=== PATIENT | female | born 1940 | race Caucasian/White ===

== ENCOUNTER 2021-06-02 13:33 | Outpatient (CLI) | payer MEDICARE, SELFPAY ==
--- NOTE | ~2021-06-02 | DEXA_ITS ---
Bone Density Report Name: THOM CHIN Age: 80 Sex: Female Ethnicity: White Date of : 1940 Indication: osteopenia; height loss; prior fracture; Referring Provider: BLADIMIR EDDY Study: Bone densitometry was performed. Exam Date: June 02, 2021 Accession number: [id number] Bone Density: Region BMD T-score Z-score Classification AP Spine (L1-L4) 1.013 -0.3 2.3 Normal Femoral Neck (Left) 0.676 -1.6 0.7 Osteopenia Total Hip (Left) 0.830 -0.9 1.1 Normal Total Hip Bilateral Avg 0.818 -1.0 1.0 Osteopenia Femoral Neck (Right) 0.650 -1.8 0.4 Osteopenia Total Hip (Right) 0.806 -1.1 0.9 Osteopenia World Health Organization criteria for BMD impression classify patients as: Normal (T-score at or above -1.0), Osteopenia (T-score between -1.0 and -2.5), or Osteoporosis (T-score at or below -2.5). 10-year Fracture Risk(1): Major Osteoporotic Fracture 20% Hip Fracture 4.7% Reported Risk Factors: [place] (), Neck BMD=0.650, BMI=26.2, previous fracture (1) FRAX(R) Version 3.08. Fracture probability calculated for an untreated patient. Fracture probability may be lower if the patient has received treatment. Previous Exams: Region Exam Age BMD T-score BMD Change BMD Change Date g/cm2 vs Baseline vs Previous AP Spine(L1-L4) 06/02/2021 80 1.013 -0.3 0.019(1.9%)# 0.027(2.8%)# 12/30/2018 78 0.986 -0.6 -0.008(-0.8%)# 0.001(0.1%) 04/25/2016 75 0.985 -0.6 -0.009(-0.9%)# 0.002(0.2%)# 12/20/2012 72 0.982 -0.6 -0.012(-1.2%)# -0.042(-4.1%)# 05/01/2009 68 1.024 -0.2 0.030(3.1%)* 0.030(3.1%)* 04/20/2007 66 0.994 -0.5 Total Hip(Left) 06/02/2021 80 0.830 -0.9 0.063(8.2%)# 0.047(6.1%)# 12/30/2018 78 0.783 -1.3 0.015(2.0%)# 0.041(5.5%)* 04/25/2016 75 0.742 -1.6 -0.025(-3.3%)# -0.045(-5.8%)# 12/20/2012 72 0.788 -1.3 0.020(2.6%)# 0.014(1.8%)# 05/01/2009 68 0.774 -1.4 0.006(0.8%) 0.006(0.8%) 04/20/2007 66 0.768 -1.4 Total Hip(Right) 06/02/2021 80 0.806 -1.1 0.065(8.8%)# 0.091(12.7%)# 12/30/2018 78 0.715 -1.9 -0.026(-3.5%)# -0.079(-9.9%)* 04/25/2016 75 0.794 -1.2 0.053(7.1%)# 0.008(1.0%)# 12/20/2012 72 0.787 -1.3 0.045(6.1%)# 0.048(6.5%)# 05/01/2009 68 0.739 -1.7 -0.003(-0.4%) -0.003(-0.4%) 04/20/2007 66 0.741 -1.6 *Denotes significance at 95% confidence level, LSC for AP Spine = 0.022 g/cm2, LSC for Total Hip = 0.027 g/cm2 Clinical Information Provided by Patient:
--- NOTE | ~2021-06-02 | MM_ITS ---
EXAMINATION: MM screening frandy BI w avel HISTORY: Screening mammogram TECHNIQUE: Craniocaudal and mediolateral oblique 3-D tomosynthesis images were obtained and synthetic 2-D images were generated. CAD analysis was submitted and interpreted. COMPARISON: 12/30/2018, 04/25/2016 bilateral screening mammogram examinations BREAST PARENCHYMAL COMPOSITION: There are scattered areas of fibroglandular density. FINDINGS: Stable mild fibroglandular asymmetry. Circumscribed low-density 2.4 mm circular mass with halo sign is noted in the mid outer left breast ( craniocaudal Tomosynthesis image 22/68), with benign mammographic features, likely a small cyst There is no evidence of suspicious mass, calcification, or architectural distortion to suggest malignancy in either breast. There has been no suspicious interval change. IMPRESSION: 1. No mammographic evidence of malignancy. 2. Recommend routine screening mammography in one year. BI-RADS Category 2: Benign finding(s). Reviewed, dictated and finalized at location A. AR[facility] NUTRITIONIST
== END 2021-06-02 13:34 | disposition home or self-care (01) ==
LOC: ANHIMG 13:37
PROVIDERS: PCP Family Medicine; Visit Provider Family Medicine
DX: Z12.31 Encounter for screening mammogram for malignant neoplasm of breast (principal); Z78.0 Asymptomatic menopausal state; M85.852 Other specified disorders of bone density and structure, left thigh; M85.851 Other specified disorders of bone density and structure, right thigh
CPT/HCPCS: 77063; 77067; 77080

== ENCOUNTER 2022-01-06 11:08 | Outpatient (CLI) | payer MEDICARE, SELFPAY ==
--- NOTE | ~2022-01-06 | US_ITS ---
US venous doppler LE RT DATE: 01/06/2022 11:38 INDICATION: Deep venous thrombosis of right lower extremity TECHNIQUE: Real-time and color flow imaging and Doppler analysis of the veins of the right lower extr emity COMPARISON: None FINDINGS: The greater saphenous vein is patent. Thrombus is identified within the right, and femoral, femoral, popliteal, posterior tibial and peroneal veins, with incomplete compression of these vessel s IMPRESSION: Deep venous thrombosis of right common femoral, femoral, popliteal, posterior tibial and peroneal veins Dr. Ogden telephoned the report on 01/06/2022 at 12:[address] Brady Castro Reviewed, dictated and finalized at Location A. Reviewed, dictated and finalized at location B. IMPRESSION: Deep venous thrombosis of right common femoral, femoral, popliteal, posterior tibial and peroneal veins Dr. Ogden telephoned the report on 01/06/2022 at 12:[address] Brady martínez
== END 2022-01-06 11:09 | disposition home or self-care (01) ==
PROVIDERS: PCP Family Medicine; Visit Provider Family Medicine
DX: M79.89 Other specified soft tissue disorders (principal); I82.411 Acute embolism and thrombosis of right femoral vein; I82.431 Acute embolism and thrombosis of right popliteal vein; I82.441 Acute embolism and thrombosis of right tibial vein; I82.451 Acute embolism and thrombosis of right peroneal vein
CPT/HCPCS: 93971

== ENCOUNTER → 2022-04-19 13:45 | Outpatient (CLI) | payer MEDICARE, SELFPAY ==
--- NOTE | ~2022-04-19 | XR_ITS ---
XR wrist RT min 3V DATE: 04/19/2022 13:59 INDICATION: Fall. Wrist pain. Swelling and bruising of hand. TECHNIQUE: 4 views of right wrist COMPARISON: None FINDINGS: There is osteopenia. No fracture or dislocation, periosteal reaction or bone destruction of the right wrist is evident. Cannot clear possible fracture at the base of the fifth metacarpal bone on an oblique view. Right wylie d radiographs are recommended. 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 No erosive change or chondrocalcinosis. IMPRESSION: Osteopenia Osteophyte is at first carpal metacarpal joint Cannot clear possible fracture at the base of the fifth metacarpal bone; right hand radiographs are r ecommended. Reviewed, dictated and finalized at location A. IMPRESSION: Osteopenia Osteophyte is at first carpal metacarpal joint Cannot clear possible fracture at the base of the fifth metacarpal bone; right hand radiographs are recommended.
== END ==
PROVIDERS: PCP Family Medicine; Visit Provider Family Medicine
DX: S52.539A Colles' fracture of unspecified radius, initial encounter for closed fracture (principal); X58.XXXA Exposure to other specified factors, initial encounter; M85.831 Other specified disorders of bone density and structure, right forearm
CPT/HCPCS: 73110

== ENCOUNTER 2023-12-06 10:58 | Outpatient (CLI) | payer MEDICARE, SELFPAY ==
[2023-12-06 14:50] LABS: Basophils Absolute Auto 0.1 K/mm3 (0.0-0.1); Basophils Percent Auto 0.9 % (0.2-1.2); Eosinophils Absolute Auto 0.3 K/mm3 (0-0.3); Eosinophils Percent Auto 3.3 % (0-4.4); Hematocrit 44.9 % (37.0-47.0); Hemoglobin 14.3 g/dL (12.0-15.0); Immature Granulocyte Absolute 0.02 K/mm3 (0.00-0.031); Immature Granulocyte Percent A 0.2 % (0-0.5); Lymphocytes Absolute Auto 2.66 K/mm3 (0.9-3.2); Lymphocytes Percent Auto 31.1 % (18.3-44.2); Mean Corpuscular HGB Conc 31.8 g/dl (32-36); Mean Corpuscular Hemoglobin 30.4 pg (26-34); Mean Corpuscular Volume 95.5 fl (80-100); Mean Platelet Volume 10.1 fl (7.4-10.4); Monocytes Absolute Auto 0.8 K/mm3 (0.1-0.6); Monocytes Percent Auto 9.3 % (2.6-8.5); Neutrophils Absolute Auto 4.7 K/mm3 (1.3-6.7); Neutrophils Percent Auto 55.2 % (45.5-73.1); Platelet Count Result 296 k/mm3 (150-375); Red Cell Distribution Width 13.7 % (11.5-14.5); White Blood Count 8.5 K/mm3 (4.5-10.0)
[2023-12-06 15:15] LABS: Alanine Aminotransferase 29 U/L (6-35); Albumin Level 4.3 g/dL (3.5-5.1); Alkaline Phosphatase 62 U/L (38-126); Anion Gap 7 mmol/L (4-12); Aspartate Amino Transferase 49 U/L (14-36); Bilirubin,Total 0.5 mg/dL (0.2-1.3); Blood Urea Nitrogen 20 mg/dL (7-17); Calcium 9.4 mg/dL (8.4-10.2); Carbon Dioxide 26 mmol/L (22-30); Chloride 106 mmol/L (98-107); Estimated Glomerular Filt Rate > 60; Glucose 107 mg/dL (65-110); Potassium 4.2 mmol/L (3.4-5.0); Sodium 139 mmol/L (137-145)
[2023-12-06 15:30] LABS: Thyroid Stimulating Hormone 0.661 uIU/mL (0.465-4.680)
== END 2023-12-06 10:59 | disposition home or self-care (01) ==
PROVIDERS: PCP Family Medicine; Visit Provider Family Medicine
DX: E03.9 Hypothyroidism, unspecified (principal); E11.9 Type 2 diabetes mellitus without complications; R53.83 Other fatigue
CPT/HCPCS: 36415; 80053; 83036; 84443; 85025

== ENCOUNTER 2024-01-15 13:15 | Outpatient (RCR) | payer MEDICARE, SELFPAY ==
--- NOTE | 2023-12-06 11:01 | PTOPEVAL1 ---
Assessment and note entered by Matthew Casillas Evaluation Information Assessment Status Evaluation Diagnosis abnormality of gait and mobility Onset 11/19/23 Subjective Information Pt. reports that she has developed numbness below the knees over the recent years. She denies any pain at this time. She states that she has recently noticed that she is having more trouble lifting her feet with walking and occasional stumbling. She states that she requires use of a handrail to navigate stairs. She denies any recent falls. She states that she continues to drive, but does get nervous due to the impaired sensation in her feet. She states that she continues to complete her own yard work despite her balance issues. She expresses concern regarding that she fatigues easily and states that she is desiring to nap more. She states that her goal for therapy is to improve her balance and improve her endurance Reported Pain Level Pain Score 0: Self Report Assessment PT Clinical Summary Pt. is an 83 year old female who enters the clinic due to impaired gait and balance. Pt. demonstrates somatosensory deconditioning on this date leading to balance issues. She currently presents with impaired gait, impaired balance, l.e . weakness, and functional decline. Continued skilled PT is indicated in order to improve these areas to allow for improved ability to complete IADL's. Plan of Care Interventions Gait Training,Manual Therapy,Neuro Re-education, Patient/Caregiver Educati,Therapeutic Activities, Therapeutic Exercise PT Services Indicated Yes Treatment Frequency and 2x/week x 10 visits Duration These treatments will address the objective and functional deficits as defined above. The patient will be advanced safely and appropriately in order for the patient to progress towards his/her prior level of function. Additional exercises will be introduced and as well as a comprehensive home exercise program upon discharge, if needed, ?to ensure carryover of functional gains achieved in the clinic. This treatment plan has been reviewed and agreement upon by the patient.
--- NOTE | 2023-12-06 11:02 | OPREHPOC ---
Outpatient Therapy Plan of Care This is a Multidisciplinary Plan of Care that may contain components documented by all disciplines (PT, OT, and ST.) PT Problem 1 PT Problem #1 Knowledge Deficit PT Goal 1 Goal Pt. will be independent with a HEP addressing strength and balance Target Visit 2 PT Problem 2 PT Problem #2 Impaired Balance PT Goal 1 Goal Pt. will score 25 or greater on the Tinetti indicating low fall risk Pt. will be able to maintain static standing eyes closed on airex foam x 1 minute without LOB indicating improved somatosensory condition. Target Visit 10 PT Problem 3 PT Problem #3 Impaired Strength PT Goal 1 Goal pt. will improve gross l.e. strength to 4+/5 or greater to improve standing endurance and gait efficiency Target Visit 10 PT Goal 2 Progress Not Met PT Problem 4 PT Problem #4 Impaired Gait PT Goal 1 Goal Pt. will complete the 6 minute walk test demonstrating 100% accuracy with the swing phase l .e. passing the stance phase l.e. Target Visit 10
--- NOTE | 2023-12-25 10:58 | PCPTNOTE ---
Patient called to cancel due to having another appointment.
--- NOTE | 2024-01-15 14:04 | PTOPDC ---
Assessment and note entered by Opal Washington, PT, DPT Evaluation Information Assessment Status Discharge Diagnosis abnormality of gait and mobility ICD-10 Condition Codes (PT) R26.9,Weakness R53.1 Onset 11/19/23 Subjective Information Pt states she feels like she is progressing really well. Pt states she feels like she is walking so much better and can get out of a chair so much easier now without any troubles. She also states she squat/bend to get something off the floor without troubles. Reported Pain Level Pain Score 0: Self Report Assessment PT Clinical Summary Bridgett has completed 9 visits of skilled therapy. Today she demonstrates improved LE strength, improved gait speed and pattern, as well as improved balance. She demonstrates improved postural awareness and lifting mechanics. She has improved her balance scores to where she is no longer at an increased risk for falls. She has met all of her therapy goals and no longer requires skilled services. She will be discharged at this time. Plan of Care PT Services Indicated No
== END 2024-01-15 15:56 | disposition home or self-care (01) ==
LOC: ANHGOSHPT 13:15
PROVIDERS: PCP Family Medicine; Visit Provider Family Medicine
DX: R53.1 Weakness (principal); R68.89 Other general symptoms and signs; R26.89 Other abnormalities of gait and mobility; Z74.09 Other reduced mobility
CPT/HCPCS: 97110; 97112; 97161; 97530

== ENCOUNTER 2024-09-30 15:35 | Outpatient (CLI) | payer MEDICARE, SELFPAY ==
--- OUTSIDE RECORDS SUMMARY | 2024-09-30 16:34 | XMS_ITS | Continuity of Care Document ---
Author Organization [email or web address] [facility] [facility] Address [address] [place] [id number] Phone Care Team Providers Care Sales Agent Business Services Name Role Phone Wade Doran Unavailable Unavailable Procedures Procedure Date Office/outpatient Visit, Est Optic Nerve Head Eval IPO Reduced 15% Office/outpatient Visit, Est Optic Nerve Head Eval IPO Reduced 15% Office/outpatient Visit, Est Optic Nerve Head Eval IPO Reduced 15% Eye Exam & Treatment Optic Nerve Head Eval IPO Reduced 15% Fundus Photography W/ Report Visual Field Examination-Professional Fe Visual Field Examination(s) Office/outpatient Visit, Est Optic Nerve Head Eval IPO Reduced 15% No Script Post-op Follow-up Visit Laser Surgery Of Eye Office/outpatient Visit, Est Optic Nerve Head Eval IPO Reduced 15% No Script Office/outpatient Visit, Est Optic Nerve Head Eval IPO Reduced 15% No Script Office/outpatient Visit, Est Optic Nerve Head Eval IPO Reduced 15% No Script Eye Exam Established Pt Script Printed/Phoned Pt Requ Or Pharm N ot Availab Visual Field Examination-Professional Visual Field Examination(s) Office/outpatient Visit, Est Optic Nerve Head Eval Office/outpatient Visit, Est Optic Nerve Head Eval Eye Exam Established Pt Post-op Follow-up Visit Ophthalmoscopy, Subsequent Optic Nerve Head Eval Post-op Follow-up Visit Post-op Follow-up Visit Ophthalmoscopy, Subsequent Office Consultation Ophthalmoscopy Office/outpatient Visit, Est Office/outpatient Visit, Est Fundus Photography W/ Report Eye Exam Established Pt Visual Field Examination(s) Office/outpatient Visit, Est Post-op Follow-up Visit Post-op Follow-up Visit Post-op Follow-up Visit Post-op Follow-up Visit Remove Cataract, Insert Lens Cyclophotocoag,endoscopic Post-op Follow-up Visit IOLMaster-Professional Post-op Follow-up Visit Advance Directives Directive Yes / No Effective Date File Name No Information Encounters Encounter Description Practice Location Reason(s) For Visit Diagnoses Date Provider Providers Copied on Encounter Office/outpat ient Visit, Est [facility], [address], [place], [place], [id number], [place] tel:[phone] [facility] No Information 0 Espinoza Olvera. [address], [place], [address], [place]. tel:[phone] Referring Provider: Chang Daily OD W, [address] [place] [address], [address]. tel:[phone] Office/outpat ient Visit, [facility], [id number] [place] [address] [address], [place], [place], [address], [place] tel:[phone] [facility] No Information 0 Krishnasamy Javier. [address], [place], [facility], [place]. tel:[phone] Referring Provider: Chang Daily OD W, [address] [place] [address], [address]. tel:[phone] Office/outpat ient Visit, [facility], [address] [place] [address] [address], [place], [place], [address], [place] tel:[phone] [facility] No Information 0 Krishnasamy Javier. [address], [place], [facility], [place]. tel:[phone] Referring Provider: Chang Daily OD W, [address] [place] [address], [address]. tel:[phone] [facility], [address] [place] [address] [address], [place], [place], [id number], [place] tel:[phone] [facility] No Information 0 Krishnasamy Javier. [address], [place], [address], [place]. tel:[phone] Referring Provider: Javier Godinez, [address] [facility] [address], [place], [address]. tel:[phone] [facility], [address] [place] [address] [address], [place], [place], [address], [place] tel:[phone] [facility] No Information - 0 Krishnasamy Javier. [address], [place], [address], [place]. tel:[phone] Referring Provider: Chang Daily OD W, [address] [place] [address], [address]. tel:[phone] [facility], [address] [place] [address] [address], [place], [place], [id number], [place] tel:[phone] [place] [address] No Information 6-201 0 Krishnasamy Javier. [address] [place], [place] [address]ate [facility] [address], [place], [facility], [place]. tel:[phone] Referring Provider: Javier Godinez, [address] [place] [address], [place], [facility]. tel:[phone] Office/outpat ient Visit, [facility], [address] [place] [address] [address], [place], [place], [address], [place] tel:[phone] [facility] No Information May-0 2-200 9 Krishnasamy Javier. [address] [place] [address], [facility], [place]. tel:[phone] Referring Provider: Chang Daily OD W, [address] [place] [address], [address]. tel:[phone] [facility], [address] [place] [address] [address], [place], [place], [address], [place] tel:[phone] [facility] No Information 1-200 9 Krishnasamy Javier. [address] [place] [address], [address], [place]. tel:[phone] Referring Provider: Chang Daily OD W, [address] [place] [address], [address]. tel:[phone] [facility], [address] [place] [address] [address], [place], [place], [address], [place] tel:[phone] [facility] No Information Nov-0 3-200 9 Doisy Edward. [address] [facility], [place], [facility], . tel:[phone] Referring Provider: Chang Daily OD W, [address] [place] [address], [address]. tel:[phone] Office/outpat ient Visit, [facility], [address] [place] [address] [address], [place], [place], [id number], tel:[phone] [facility] No Information Oct-0 8-200 9 Doisy Edward. [address] [facility] , [address], [place], [facility], . tel:[phone] Referring Provider: Chang Daily OD W, [address] [place] [address], [address]. tel:[phone] Office/outpat ient Visit, [facility], [address] [place] [address] [address], [place], [place], [address], [phone] [facility] No Information Sep-1 6-200 9 Krishnasamy Javier. [facility] [address], [place], [facility], [place]. tel:[phone] Referring Provider: Chang Daily OD W, [address] [place] [address], [address]. tel:[phone] Office/outpat ient Visit, [facility], [address] [place] [address] [address], [place], [place], [address], [place] tel:[phone] [facility] No Information October-2 7200 9 Krishnasamy Javier. [facility] [address], [place], [facility], . tel:[phone] Referring Provider: Chang Daily OD W, [address] [place] [address], [address]. tel:[phone] [facility], [address], [place], [place], [address], [place] tel:[phone] [facility] No Information 200 9 Doisy Edward. [address], [place], [facility], [place]. tel:[phone] Referring Provider: Chang Fernandez, [address] [place] [address], [address]. tel:[phone] [facility], [address], [place], [place], [address], [place] tel:[phone] [facility] No Information 9 Krishnasamy Javier. [address] [facility] [address], [place], [facility], . tel:[phone] Referring Provider: Chang Fernandez, [address] [place] [address], [address]. tel:[phone] [facility], [address], [place], [place], [id number], [place] tel:[phone] [facility] No Information 9 Krishnasamy Javier. [address] [facility] [place] [address], [place], [facility], [place]. tel:[phone] Referring Provider: Javier Godinez, [address] [place], [place] [address], [place], [facility]. tel:[phone] Office/outpat ient Visit, Est [facility], [address], [place], [place], [address], [place] tel:[phone] [facility] No Information 8 Krishnasamy Javier. [address] [facility] [place] [address], [place], [facility], [place]. tel:[phone] Referring Provider: Chang Fernandez, [address] [place], [address]. tel:[phone] Office/outpat ient Visit, Est [facility], [address] [place] [address] [address], [place], [place], [address], tel:[phone] [facility] No Information Nov-0 5-200 8 Herbert Neumannhil. [address] [place] [address], [facility], [place]. tel:[phone] Referring Provider: Osmar Peter, [address] [place], [place], [facility]. tel:[phone] [facility], [address] [place] [address] [address], [place], [place], [address], tel:[phone] [facility] No Information Oct-3 0-200 8 Kesha Prasad. [address] [place], [facility], [place]. tel:[phone] Referring Provider: Chang Daily OD W, [facility] [place], [address]. tel:[phone] [facility], [address] [place] [address] [address], [place], [place], [address], [place] tel:[phone] [facility] No Information Oct-0 2-200 8 Kesha Prasad. [address] [place], [facility], [place]. tel:[phone] Referring Provider: Chang Daily OD W, [address] [place], [address]. tel:[phone] [facility], [address] [place] [address] [address], [place], [place], [address], [place] tel:[phone] [facility] No Information Sep-0 4-200 8 Kesha Prasad. [address] [place], [facility], [place]. tel:[phone] Referring Provider: Chang Daily OD W, [address] [place] [address], [address]. tel:[phone] [facility], [address] [place] [address] [address], [place], [place], [address], [place] tel:[phone] [place] [address] No Information 8 Kesha Prasad. [address] [place], [facility], . tel:[phone] Referring Provider: Chang Daily OD W, [address] [place] [address], [address]. tel:[phone] Office Consultation [facility], [address] [place] [address] [address], [place], [place], [address], [place] tel:[phone] [facility] No Information 8 Kesha Prasad. [address] [place], [facility], [place]. tel:[phone] Referring Provider: Purnima Cuevas, [address], [place], [facility]. tel:[phone] Office/outpat ient Visit, [facility], [address], [place], [place], [address], [place] tel:[phone] [facility] No Information 8 Gale Felton. [address], [place], [facility], [place]. tel:[phone] Referring Provider: Chang Daily OD W, [address] [place] [address], [address]. tel:[phone] Office/outpat ient Visit, [facility], [address] [place] [address] [address], [place], [place], [address], [place] tel:[phone] [facility] No Information 8 Gale Felton. [address], [place], [facility], [place]. tel:[phone] Referring Provider: Chang Daily OD W, [address] [place] [address], [address]. tel:[phone] [facility], [address], [place], [place], [address], [place] [phone] [facility] No Information 8 Gale Lovett [address], [place], [facility], . tel:[phone] Referring Provider: Chang Daily OD W, [address] [place] [address], [address]. tel:[phone] [facility], [address], [place], [place], [address], [place] tel:[phone] [facility] No Information 0200 7 Gale Lovett [address], [place], [facility], [place]. tel:[phone] Referring Provider: Purnima Cuevas, [address], [place], [facility]. tel:[phone] Office/outpat ient Visit, [facility], [address] [place] [address] [address], [place], [place], [address], [place] tel:[phone] [facility] No Information 7 Gale Lovett [address], [place], [facility], [place]. tel:[phone] Referring Provider: Chang Daily OD W, [address] [place] [address], [address]. tel:[phone] [facility], [address], [place], [place], [address], [place] tel:[phone] [facility] No Information 3-200 7 Beasley Purnima. [address], [place], [address], [place]. tel:[phone] Referring Provider: Chang Daily OD W, [address] [place] [address], [address]. tel:[phone] [facility], [address], [place], [place], [address], [place] tel:[phone] [place] [address] No Information 7 Beasley Purnima. [address], [place], [address], [place]. tel:[phone] Referring Provider: Chang Daily OD W, [address] [place] [address], [address]. tel:[phone] [facility], [address] [place] [address] [address], [place], [place], [address], [place] tel:[phone] [facility] No Information 7 Beasley Purnima. [address] [facility] [address], [place], [address], [place]. tel:[phone] Referring Provider: Chang Daily OD W, [address] [place] [address], [address]. tel:[phone] [facility], [address] [place] [address] [address], [place], [place], [address], [place] tel:[phone] [facility] No Information 7 Pulliam OD Al. [address] [facility] [address], [place], [address], [place]. tel:[phone] Referring Provider: Chang Daily OD W, [address] [place] [address], [address]. tel:[phone] [facility], [address], [place], [place], [address], [place] tel:[phone] [facility] No Information 7 Beasley Purnima. [address], [place], [address], [place]. tel:[phone] Referring Provider: Chang Fernandez, [address] [place], [address]. tel:[phone] [facility], [address], [place], [place], [address], tel:[phone] [place] [address] No Information 2200 7 Gale Purnima. [address], [place], [address], [place]. tel:[phone] Referring Provider: Chang Fernandez, [address] [place], [address]. tel:[phone] [facility], [address], [place], [place], [address], tel:[phone] [facility] No Information 200 6 Gale Purnima. [address] [facility] , [address], [place], [address], [place]. tel:[phone] Family History Family Member Type Diagnosis Age At Onset No Information Payers Payer name Insurance type Covered republican ID Authoriza tion(s) [place] [id number] [facility] [id number] Social History Type Description Quantity Date Captured Comments Sex Female Smoking Status No Information Chief Complaint And Reason For Visit No Information Reason For Referral Reason For Referral No Information History Of Present Illness Encounter Date Complaint History Of Prese nt Illness No Information Functional Status Date Functional Assessmen t No Information Instructions Date Instruction Additional Infor mation No Information Assessments Type Assessment Date No Information Patient Care Teams Name Effective Dates (start - stop) Status Members No Information
[2024-09-30 18:43] LABS: Alanine Aminotransferase 27 U/L (6-35); Albumin Level 4.1 g/dL (3.5-5.1); Alkaline Phosphatase 60 U/L (38-126); Anion Gap 9 mmol/L (4-12); Aspartate Amino Transferase 51 U/L (14-36); Bilirubin,Total 0.3 mg/dL (0.2-1.3); Blood Urea Nitrogen 16 mg/dL (7-17); Calcium 9.3 mg/dL (8.4-10.2); Carbon Dioxide 29 mmol/L (22-30); Chloride 105 mmol/L (98-107); Estimated Glomerular Filt Rate > 60; Glucose 129 mg/dL (65-110); Potassium 4.3 mmol/L (3.4-5.0); Sodium 143 mmol/L (137-145)
[2024-09-30 18:58] LABS: Basophils Absolute Auto 0.1 K/mm3 (0.0-0.1); Basophils Percent Auto 0.6 % (0.2-1.2); Eosinophils Absolute Auto 0.3 K/mm3 (0-0.3); Eosinophils Percent Auto 3.6 % (0-4.4); Hematocrit 42.5 % (37.0-47.0); Hemoglobin 13.5 g/dL (12.0-15.0); Immature Granulocyte Absolute 0.01 K/mm3 (0.00-0.031); Immature Granulocyte Percent A 0.1 % (0-0.5); Lymphocytes Absolute Auto 3.37 K/mm3 (0.9-3.2); Lymphocytes Percent Auto 41.4 % (18.3-44.2); Mean Corpuscular HGB Conc 31.8 g/dl (32-36); Mean Corpuscular Hemoglobin 30.4 pg (26-34); Mean Corpuscular Volume 95.7 fl (80-100); Mean Platelet Volume 10.2 fl (7.4-10.4); Monocytes Absolute Auto 0.8 K/mm3 (0.1-0.6); Monocytes Percent Auto 10.2 % (2.6-8.5); Neutrophils Absolute Auto 3.6 K/mm3 (1.3-6.7); Neutrophils Percent Auto 44.1 % (45.5-73.1); Platelet Count Result 287 k/mm3 (150-375); Red Blood Count 4.44 M/mm3 (4.2-5.4); Red Cell Distribution Width 14.1 % (11.5-14.5); White Blood Count 8.1 K/mm3 (4.5-10.0)
[2024-09-30 19:00] LABS: Hemoglobin A1C 6.2 % (<5.7)
[2024-09-30 19:02] LABS: Creatinine Urine 59.8 mg/dL
[2024-09-30 19:09] LABS: Thyroid Stimulating Hormone 0.952 uIU/mL (0.465-4.680)
[2024-09-30 19:10] LABS: MALB Creatinine Ratio 18.4 mg/g (0-30)
== END 2024-09-30 15:36 | disposition home or self-care (01) ==
LOC: ANHGOSHLAB 15:37
PROVIDERS: PCP Family Medicine; Visit Provider Family Medicine
DX: E78.5 Hyperlipidemia, unspecified (principal); E11.9 Type 2 diabetes mellitus without complications; R53.83 Other fatigue
CPT/HCPCS: 36415; 80053; 82043; 83036; 84443; 85025

== ENCOUNTER 2024-12-29 15:38 | Emergency (ER) | payer MEDICARE, SELFPAY ==
--- NOTE | ~2024-12-29 | XR_ITS ---
XR foot LT min 3V Ordering provider: Diana Sheridan APRN History: . pain, swelling Lt foot, stubbed 2 days ago. Ip joint pain . Comparison: None. FINDINGS: BONES: Fracture in the distal metaphysis of the proximal phalanx of the second toe. Chip fracture at the base of the distal phalanx of the left big toe. The bones. JOINT SPACES: Narrowing of the proximal and distal interphalangeal joints.. No tarsal coalition. SOFT TISSUES: Normal. Calcaneus spur. IMPRESSION: Fracture in the proximal phalanx of the left second toe. Possible Chip fracture at the base of the di stal phalanx of the left big toe. Polyarticular osteoarthritic changes. Reviewed, dictated and finalized at location A. IMPRESSION: Fracture in the proximal phalanx of the left second toe. Possible Chip fracture at the base of the distal phalanx of the left big toe. Polyarticular osteoarthritic changes.
--- NOTE | 2024-12-29 15:40 | ED.LOWEXIN ---
HPI - Extremity Injury (Lower) General Chief Complaint: Extremity Injury, Lower Stated Complaint: Injured Toe Time Seen by Provider: 12/29/24 15:46 Source: patient, RN notes reviewed and old records reviewed Mode of arrival: ambulatory Limitations: no limitations History of Present Illness HPI Narrative: 84-year-old female presents to the [facility] with bruising, swelling, discomfort to the left great toe and top of foot. Has a 2 cm abrasion to the dorsal aspect. Has a blood blister to the dorsal aspect. Bruising, redness noted to the medial aspect great toe into the MCP area of the great toe. Significant bruising noted to the dorsal distal aspect of the foot. Patient on Xarelto Patient states that she was walking barefoot on Sunday, stubbed her toe on the carpet several times. No treatment prior to arrival Related Data Home Medications ?Medication ?Instructions ?Recorded ?Confirmed ?Last Taken ?Type brinzolamide 1 %-brimonidine 0.2 % 1 drp EACH EYE TID 12/23/20 10/01/24 Unknown History eye drops,suspension (Simbrinza) latanoprost 0.005 % eye drops 1 drp EACH EYE DAILY 12/23/20 10/01/24 Unknown History calcium carbonate (Calcium 600) 600 mg PO DAILY 03/05/23 10/01/24 Unknown History cholecalciferol (vitamin D3) 125 125 mcg PO DAILY 03/05/23 10/01/24 Unknown History mcg (5,000 unit) capsule coenzyme Q10 100 mg capsule 100 mg PO DAILY 03/05/23 10/01/24 Unknown History (CoQ-10) magnesium citrate,mag oxide 250 mg mg PO 03/05/23 10/01/24 Unknown History capsule mecobalamin (vitamin B12) 1,000 1,000 mcg sublingual DAILY 03/05/23 10/01/24 Unknown History mcg disintegrating tablet,sublingual [id number] acid 0.4 1 tablet PO DAILY 08/13/23 10/01/24 Unknown History mg-lycopene 300 mcg-lutein 250 mcg tablet (Centrum Silver) Allergies Allergy/AdvReac Type Severity Reaction Status Date / Time erythromycin base Allergy Unknown Nausea Verified 12/29/24 15:51 Review of Systems Review of Systems: All systems reviewed & are unremarkable except as noted in HPI and below Constitutional: Constitutional: Reports no additional constitutional complaints ENT: Reports system reviewed and no additional complaints, except as documented Cardiovascular: Cardiovascular: Reports no additional cardiovascular complaints, Denies chest pain and Denies dyspnea Musculoskeletal: Musculoskeletal: Reports as per HPI Integumentary/Breasts: Skin/Breast: Reports as per HPI [facility] Past Medical History Medical History Hypothyroidism (acquired) Overweight (BMI 25.0-29.9) Surgical History Surgical History Hx of cornea transplant Family History Family History Father Heart attack Social History Social History Smoking status: Never smoker Alcohol intake: never Lack of Transportation: No Lack of Food: Never True Current Housing: I Have Housing Concerned About Future Housing: No Difficulty Paying Gas/Electric Bills: No Difficulty Paying for Meds: No Currently Unemployed: Decline to Answer Education: Trade/Vocational Certificate Difficulty w/ Childcare or Family Care: No Comments At the time of my signature, I reviewed and agree with the nursing past medical, surgical, social, and family history. There is no relevant family history pertinent to the patient complaint. Exam Const: General: cooperative, no acute distress, well developed, alert, ill appearing chronically, uncomfortable and well nourished Nutritional Appearance: well nourished Orientation/consciousness: patient oriented x3 Limitations: no limitations HENMT: Head: normal to inspection Eyes: General: appearance normal, both eyes and all related structures Alignment and Position: alignment normal Neck: Neck: normal visual inspection, full ROM, no lymphadenopathy and no meningeal signs Chest: Chest palpation & inspection: normal inspection of the chest Resp: Effort & Inspection: normal respiratory effort and able to speak in complete sentences Cardio: Rate: regular rate Neuro: General: patient oriented x3, gait normal, moves all extremities and no meningeal signs Cognition (Neuro): normal cognition Speech: normal speech Gait exam (Neuro): Normal gait present Extrem: General: normal to inspection, full ROM, capillary refill normal and normal gait Left lower extremity: foot Details: tenderness, abnormal ROM of toe Details: pain with active ROM, ecchymosis and vascular exam Details: dorsalis pedis pulse present and normal capillary refill Ankle/foot/toe images:  1. Abrasion 2. Blood blister 3. Swelling and bruising Psych: Appearance: grossly normal and well kempt Mental Status: mental status grossly normal Speech and movement: Normal speech and movement present and Clear speech present Affect: normal affect Attitude: cooperative Course Course Level of Care: Express Care Visit Vital Signs Vital signs: Vital Signs Temperature 97.5 F L 12/29/24 15:46 Pulse Rate 85 12/29/24 15:46 Respiratory Rate 16 12/29/24 15:46 Blood Pressure 161/91 H 12/29/24 15:46 Pulse Oximetry 98 12/29/24 15:46 Oxygen Delivery Room Air 12/29/24 15:46 Temperature 97.5 F L 12/29/24 15:46 Pulse Rate 85 12/29/24 15:46 Respiratory Rate 16 12/29/24 15:46 Blood Pressure 161/91 H 12/29/24 15:46 Pulse Oximetry 98 12/29/24 15:46 Oxygen Delivery Room Air 12/29/24 15:46 Reviewed MDM - Extremity Injury (Lower) MDM Narrative Medical decision making narrative: Patient sitting in exam room. Patient is nontoxic, vitals are stable. Patient presents with left great toe and pain, swelling, bruising to the dorsal aspect left foot. X-ray shows fracture of the 2nd toe. Possible chip fracture of the great toe Patient placed in a postop shoe. Discussed the importance of following up with Podiatry Patient appropriate for outpatient treatment With close follow-up Discharge instructions reviewed with patient, as well as provided in writing per nursing staff. The instructions also include specific and strict return/GO TO THE ER as well as f/u information. All questions have been answered, and the patient deny any further questions with discharge and discharge plan. Some parts of this dictation were generated by voice recognition software and may contain typographical and/or grammatical inaccuracies. Differential Diagnosis Differential diagnosis: Likely fracture of toe and other (Sprain, strain, contusion) Imaging Data Radiologist's impression: XR foot LT min 3V Ordering provider: Diana Sheridan APRN History: . pain, swelling Lt foot, stubbed 2 days ago. Ip joint pain . Comparison: None. FINDINGS: BONES: Fracture in the distal metaphysis of the proximal phalanx of the second toe. Chip fracture at the base of the distal phalanx of the left big toe. The bones. JOINT SPACES: Narrowing of the proximal and distal interphalangeal joints.. No tarsal coalition. SOFT TISSUES: Normal. Calcaneus spur. IMPRESSION: Fracture in the proximal phalanx of the left second toe. Possible Chip fracture at the base of the distal phalanx of the left big toe. Polyarticular osteoarthritic changes. Critical Care Time Critical Care Time Critical Care Time: No Discharge Plan Discharge Clinical Impression: Fracture of toe of left foot, Avulsion fracture, Contusion of foot, left, Abrasion of toe of left foot Patient Disposition: Home Condition: Stable Instructions: Antibiotic Form, Toe Fracture (ED), Contusion in Adults (ED), Abrasion (ED) Additional Instructions: Rest, ice and elevate every 2-3 hours for 15-20 minutes. Soak twice a day warm soapy water with Epson salt. Be sure to keep the abrasion clean and dry Take Tylenol as needed for pain Wear the shoe that we gave you at all times The x-ray showed a fracture of the 2nd toe and a possible chip fracture of the big toe Do not open the blister that is forming Follow-up with primary care provider Follow-up with podiatry For new or worsening symptoms go directly to the emergency room Patient Language: Swedish Prescriptions: New cephalexin 500 mg capsule 500 mg PO Q6H 7 Days Qty: 28 0RF No Action cholecalciferol (vitamin D3) 125 mcg (5,000 unit) capsule 125 mcg PO DAILY calcium carbonate [Calcium 600] 600 mg calcium (1,500 mg) tablet 600 mg PO DAILY magnesium citrate,mag oxide 250 mg capsule PO mecobalamin (vitamin B12) 1,000 mcg tablet,disintegrating 1,000 mcg sublingual DAILY Rx Instructions: place tablet under tongue and allow to dissolve for at least30 secs before swallowing coenzyme Q10 [CoQ-10] 100 mg capsule 100 mg PO DAILY Simbrinza 1-0.2 % drops,suspension 1 drp EACH EYE TID latanoprost 0.005 % drops 1 drp EACH EYE DAILY Centrum Silver 0.4 mg-300 mcg- 250 mcg tablet 1 tablet PO DAILY metformin [Glucophage XR] 500 mg tablet extended release 24 hr 500 mg PO QPM Qty: 90 3RF Rx Instructions: take with supper lisinopril 10 mg tablet 10 mg PO DAILY Qty: 90 1RF Xarelto 10 mg tablet 10 mg PO DAILY Qty: 90 3RF lovastatin 10 mg tablet 10 mg PO QPM Qty: 90 1RF escitalopram oxalate 10 mg tablet 10 mg PO DAILY Qty: 90 1RF Follow-up/Referrals: Jovanny Painter Jr., DPM [Physician] - Matthew Abreu MD [Primary Care Provider] - 1 Week ([facility] care follow up blood pressure check toe fractures with contusions ) Clovis Pizano DPM [Physician] - Time of Disposition: 16:40
[2024-12-29 15:46] VITALS: BP 161/91; PULSE 85; RESP 16; TEMP 36.4; O2SAT 98
== END 2024-12-29 16:51 | disposition home or self-care (01) ==
PROVIDERS: Emergency Provider Nurse Practitioner; PCP Family Medicine
DX: S92.512A Displaced fracture of proximal phalanx of left lesser toe(s), initial encounter for closed fracture (principal); S92.402A Displaced unspecified fracture of left great toe, initial encounter for closed fracture; W22.8XXA Striking against or struck by other objects, initial encounter; S90.32XA Contusion of left foot, initial encounter; S90.412A Abrasion, left great toe, initial encounter; E03.9 Hypothyroidism, unspecified; Z94.7 Corneal transplant status
CPT/HCPCS: 73630; 99214; G0463

== ENCOUNTER 2025-02-04 11:29 | Outpatient (CLI) | payer MEDICARE, SELFPAY ==
[2025-02-04 13:08] LABS: Alanine Aminotransferase 23 U/L (6-35); Albumin Level 4.2 g/dL (3.5-5.1); Alkaline Phosphatase 65 U/L (38-126); Anion Gap 7 mmol/L (4-12); Aspartate Amino Transferase 48 U/L (14-36); Bilirubin,Total 0.5 mg/dL (0.2-1.3); Blood Urea Nitrogen 15 mg/dL (7-17); Calcium 9.6 mg/dL (8.4-10.2); Carbon Dioxide 26 mmol/L (22-30); Chloride 107 mmol/L (98-107); Estimated Glomerular Filt Rate > 60; Glucose 105 mg/dL (65-110); Potassium 4.7 mmol/L (3.4-5.0); Sodium 140 mmol/L (137-145); Total Protein 8.1 g/dL (6.3-8.2)
[2025-02-04 13:31] LABS: Hemoglobin A1C 6.1 % (<5.7)
== END 2025-02-04 11:30 | disposition home or self-care (01) ==
LOC: ANHGOSHLAB 11:30
PROVIDERS: PCP Family Medicine; Visit Provider Family Medicine
DX: R73.03 Prediabetes (principal); I10 Essential (primary) hypertension
CPT/HCPCS: 36415; 80053; 83036